=== PATIENT | female | born 1990 | race Caucasian/White ===

== ENCOUNTER 2020-11-20 16:16 | Emergency (ER) | payer SELFPAY | END 2020-11-20 19:00 | disposition left against medical advice (07) | PROVIDERS: Emergency Provider Emergency Medicine | DX: K08.89 Other specified disorders of teeth and supporting structures (principal) ==

== ENCOUNTER 2024-11-02 22:11 | Emergency (ER) | payer MEDICAID, OTHER, SELFPAY ==
[2024-11-02 22:14] VITALS: BP 110/80; PULSE 83; O2SAT 98
[2024-11-02 22:24] VITALS: BMI 19.1
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
[2024-11-02 23:07] LABS: UPreg QC Valid YES; Urine Pregnancy NEGATIVE (NEGATIVE)
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
[2024-11-03] MEDS: Ondansetron ODT 4 MG TAB.RAPDIS TRANSLINGU (02:29)
[2024-11-03] MEDS: Azithromycin 500 MG TABLET 1000 MG PO (02:30)
[2024-11-03] MEDS: SANE metroNIDAZOLE 500 MG TABLET KIT PO (02:31)
[2024-11-03] MEDS: SANE Emtricit/Tenofov DF 200/300 TABLET KIT 1 TAB PO (02:31)
[2024-11-03] MEDS: SANE Dolutegravir Sodium 50 MG TAB KIT PO (02:31)
[2024-11-03] MEDS: levonorgestreL 1.5 MG TABLET PO (02:33)
[2024-11-03] MEDS: cefTRIAXone sodium 500 MG, Lidocaine HCl 1 % MPF 1 ML IM (02:33)
[2024-11-03 03:00] VITALS: BP 115/82; PULSE 106; RESP 18; TEMP 36.7; O2SAT 97
[2024-11-03 03:04] LABS: Aspartate Amino Transferase 22 U/L (5-31); Creatinine Clr Calc Pharmacy 71.3; Estimated Glomerular Filt Rate > 60
[2024-11-03 03:15] VITALS: BP 115/82; PULSE 106; RESP 18; TEMP 36.7; O2SAT 97
[2024-11-03 03:34] LABS: Alanine Aminotransferase 19 U/L (0-31)
[2024-11-03 04:33] LABS: CT PCR NOT DETECTED (Not Detect.); NG PCR NOT DETECTED (Not Detect.)
[2024-11-03 08:15] LABS: HBS Num1 28.07 mIU/mL (0-7.99); HBsAGNum1 0.48 S/CO (0.00-0.99); HIV AB/AG Nonreactive (Nonreactive); HIV Num 1 0.07 S/CO (0.00-0.99); Hepatitis B Surface Antigen Negative (Negative); ~HepC Num1 16.72 S/CO (0.00-0.79); ~Hepatitis B Surface Antibody REACTIVE (Nonreactive); ~Hepatitis C Antibody Reactive (Nonreactive)
[2024-11-03 08:44] LABS: Syphilis Screen Nonreactive (Nonreactive)
== END 2024-11-03 03:16 | disposition home or self-care (01) ==
PROVIDERS: Emergency Provider Emergency Medicine
DX: T76.21XA Adult sexual abuse, suspected, initial encounter (principal); F11.10 Opioid abuse, uncomplicated; F14.10 Cocaine abuse, uncomplicated; Z20.2 Contact with and (suspected) exposure to infections with a predominantly sexual mode of transmission; Z79.899 Other long term (current) drug therapy
CPT/HCPCS: 36415; 81025; 82565; 84450; 84460; 86706; 86780; 86803; 87340; 87389; 87491; 87591; 96372; 99284; J0696; J2003